=== PATIENT | male | born 1955 | race Caucasian/White ===

== ENCOUNTER 2016-12-22 06:23 | Inpatient (IN) | payer BC ==
[2016-12-20 10:20] LABS: HEMATOCRIT 41.4 % (40.0-51.0); HEMOGLOBIN 13.9 g/dL (13.6-17.8)
[2016-12-20 10:36] LABS: CALCIUM, SERUM 9.3 MG/DL (8.5-10.4); CHLORIDE, SERUM 106 MMOL/L (96-112); CO2 (CARBON DIOXIDE) 33 MMOL/L (24-34); CREATININE 1.08 MG/DL (0.70-1.30); GFR AFRICAN AMERICAN 84 ML/MIN (>=60); GFR NON AFRICAN AMERICAN 73 ML/MIN (>=60); GLUCOSE, SERUM 87 MG/DL (60-99); POTASSIUM, SERUM 4.6 MMOL/L (3.5-5.3); SODIUM, SERUM 143 MMOL/L (135-148)
[2016-12-20 10:37] LABS: BUN (BLOOD UREA NITROGEN) 15 MG/DL (6-23)
--- NOTE | ~2016-12-22 | OP ---
Record Of Operation [facility] [address] [place]. [address] NAME: ULISES FRANCO : 51 STATUS : ADM IN PAT#: [id number] AGE: 61 ADM/REG DATE : 12/22/16 MR#: [id number] REPORT SERV DATE: 12/22/16 DICTATED BY: TOYA LEE DATE: 12/22/16 REPORT STATUS : Draft TRANSCRIBED BY: MODL DATE: 12/22/16 DATE OF PROCEDURE: 12/22/2016 PREOPERATIVE DIAGNOSIS: High-grade right internal carotid artery stenosis. POSTOPERATIVE DIAGNOSIS: High-grade right internal carotid artery stenosis. PROCEDURE: 1. Right carotid endarterectomy with intraoperative shunt placement and CorMatrix patch angioplasty. 2. Completion ultrasound. SURGEON: Toya Lee M.D. CHAIRMAN: Araseli. ANESTHESIA: General endotracheal. ESTIMATED BLOOD LOSS: 125 mL. SPECIMEN: Carotid plaque. DRAINS: Round 15 Darrell to the right neck. COMPLICATIONS: None. INDICATION: Mr. Franco is a pleasant, 61-year-old man with recent diagnosis of high-grade right internal carotid artery stenosis. Fortunately, he has been asymptomatic from a stroke standpoint. He is recommended for carotid endarterectomy for stroke prevention. DETAILS OF PROCEDURE: After informed consent was obtained, the patient was brought to the operating room and placed in supine position. After administration of anesthesia, he was prepped and draped in the usual sterile fashion. A time-out was performed. I commenced the procedure with a right anterior sternocleidomastoid incision. I dissected down through the platysma and subcutaneous tissues with cautery. I identified the internal jugular vein and retracted it laterally. Facial vein was identified and ligated proximally and distally, then divided. Underlying facial vein was carotid bifurcation. Somewhat high in the neck. We systemically heparinized with 5000 units of IV heparin. I then further exposed the internal carotid artery, which required mobilization of hypoglossal nerve. It was encircled with vessel loop. External carotid artery was also encircled with vessel loop. Common carotid artery was encircled with umbilical tape. The hypoglossal and vagus nerves were identified and preserved. After the heparin was circulated, we clamped 1st the internal carotid, followed by the common carotid, then the external carotid artery. Arteriotomy was performed with 11 blade and extended proximally and distally with Wheeler scissors. A dense heterogeneous plaque throughout the distal common carotid artery to bifurcation of the internal carotid artery. Visually, this is a high-grade greater than 80% stenosis. There Record Of Operation [facility] [address] [place]. [address] NAME: ULISES FRANCO : 51 STATUS : ADM IN PAT#: [id number] AGE: 61 ADM/REG DATE : 12/22/16 MR#: [id number] REPORT SERV DATE: 12/22/16 DICTATED BY: TOYA LEE DATE: 12/22/16 REPORT STATUS : Draft TRANSCRIBED BY: MODL DATE: 12/22/16 was no thrombus or ulceration. I placed a 10-Australian argyle shunt first distally in the internal carotid artery, then proximally the common carotid artery. He has a strong pulsatile back bleeding. Once the shunt was secured in place with a Rumel tourniquet, extensive endarterectomy was performed to the distal common carotid artery, bifurcation internal carotid artery. The distal plaque feathered to a beautiful endpoint. The proximal endpoint was cut flushed with Wheeler scissors. I also performed eversion endarterectomy of the external carotid artery. Plaque was passed off the table. After that, all remaining loose debris was removed. I irrigated with heparinized saline. I then performed a patch angioplasty with a CorMatrix patch. This was sewn in place with running 6-0 Prolene. Prior to completing suture line, shunt was removed. I forward flushed and back flushed and reclamped the arteries. I irrigated once again with heparinized saline. After that, I completed the suture line. Clamps were removed from the common and external carotid arteries leaving the internal clamp for further flushing for several seconds. I then removed the internal clamp. Suture line was hemostatic. The artery was obviously pulsatile. Handheld duplex ultrasound was used to examine the proximal and distal endpoints. There is no free flap or floating debris. No velocity elevations or turbulent flow. Normal Doppler signals were appreciated in all three vessels. After that, we ensured hemostasis. We irrigated with sterile saline. I placed a round 15 Darrell drain by the artery and brought it out the inferior portion of the incision. I secured it to the skin with 2-0 nylon. After that, the platysma was closed with running 2-0 Vicryl. The skin was closed with running 4-0 Monocryl. Dermabond was applied. The drain was hooked to bulb suction. The patient tolerated the procedure well with no complications. I was present and participated the entire case as dictated. While still in the operating room, he was allowed to awaken from anesthesia. He followed commands and moved all four extremities symmetrically. CASEY/SHAHRIAR Toya Lee M.D. / [id number] CC: Lynda Carrillo M.D. Van Stephen Monroe Jr., M.D.
[~2016-12-22 06:23] MED LIST: ALEVE220 MG PO; ASAB PO; COREG6 PO; LIPITOR40 PO; LISINOPRIL40 MG PO; LORTAB10 PO; MULTIPLE VIT PO; NITROSTAT0.4 MG SL; PLAVIX PO; PRAVAC PO; PRAVACHOL40 MG PO; PRIN5 PO; SUPER B COMP PO; TOPXL25 PO; VITC500 PO
[2016-12-23] MEDS ORDERED: NORCO1 TA1 PO (12:38)
== END 2016-12-23 18:12 | disposition home or self-care (01) | DRG 39 ==
LOC: SDC/OF 06:23 → PACU 10:41 → CVICU 12:15
PROVIDERS: Surgery
PROC: 03CM0ZZ Extirpation of Matter from Right External Carotid Artery, Open Approach (ICD-10-PCS; 2016-12-22)
PROC: 03CK0Z6 (ICD-10-PCS; 2016-12-22)
PROC: 03CH0ZZ Extirpation of Matter from Right Common Carotid Artery, Open Approach (ICD-10-PCS; principal; 2016-12-22 08:15)
DX: I65.21 Occlusion and stenosis of right carotid artery (principal); I10 Essential (primary) hypertension; E78.5 Hyperlipidemia, unspecified; I25.10 Atherosclerotic heart disease of native coronary artery without angina pectoris; Z95.1 Presence of aortocoronary bypass graft; Z80.3 Family history of malignant neoplasm of breast; Z88.5 Allergy status to narcotic agent; Z79.82 Long term (current) use of aspirin; Z79.899 Other long term (current) drug therapy; Z79.02 Long term (current) use of antithrombotics/antiplatelets
CPT/HCPCS: 80048; 85014; 85018; 87641; 88304; 93005; A9270-GY; C1782; J0690; J1170; J2250; J2370; J2405; J2710; J3010